=== PATIENT | female | born 2000 | race Caucasian/White ===

== ENCOUNTER → 2022-10-03 | Outpatient (CLI) | payer MEDICAID, SELFPAY ==
--- NOTE | 2022-10-03 13:00 | MRI_ITS ---
HISTORY: Pelvic injury and ongoing pain, evaluate stenosis TECHNIQUE: Multiplanar and multisequence MR images of the lumbar spine were obtained without intravenous contrast. 120 images. COMPARISON: XR 07/09/2017. FINDINGS: VERTEBRAE: Vertebral body heights maintained. No significant bone marrow signal abnormality. ALIGNMENT: No anterior or posterior subluxation. CONUS: Normal morphology and position of the conus medullaris at L1. INTERVERTEBRAL DISCS: T12-L1: No significant posterior disc protrusion, central canal stenosis, or foraminal narrowing based on the sagittal images. L1-2: Minimal disc bulge without significant central canal stenosis or foraminal narrowing. L2-3: No significant posterior disc protrusion, central canal stenosis, or foraminal narrowing. L3-4: Mild central disc protrusion with minimal narrowing of the thecal sac and bilateral foramina. L4-5, L5-S1: No significant posterior disc protrusion, central canal stenosis, or foraminal narrowing. SOFT TISSUES: No paraspinal fluid collection. MRI/Spine Lumbar (Routine) IMPRESSION: Mild central disc protrusion at L3-4 without significant spinal canal stenosis or foraminal narrowing. Electronically Signed: Norma Hoover MD at 15:52 EST ,
== END | disposition home or self-care (01) ==
LOC: MRI 12:23
PROVIDERS: PCP Family Medicine; Referring Provider Orthopaedic Surgery; Visit Provider Orthopaedic Surgery
DX: M48.061 Spinal stenosis, lumbar region without neurogenic claudication (principal); Q76.49 Other congenital malformations of spine, not associated with scoliosis
CPT/HCPCS: 72148